=== PATIENT | female | born 1985 | race Caucasian/White ===

== ENCOUNTER 2016-06-12 20:20 | Emergency (ER) | payer BC ==
[2016-06-12 20:54] VITALS: BP 125/67; O2SAT 99
[2016-06-12] MEDS ORDERED: OSELTAMIVIR 75 MG CAP PO ONE (21:37)
--- NOTE | 2016-06-12 21:48 | ED.PDOC ---
History of Present Illness - General Chief Complaint: Fever Stated Complaint: fever, cough, body aches Time Seen by Provider: 06/12/16 21:30 Source: patient Exam Limitations: no limitations - History of Present Illness Initial Comments: Patient presents with one day of ST/fever and non-productive cough. Also has generalized body aches. No sick contacts. She did have a flu shot 3 months ago. + clear nasal exudates. Some mild nausea. No vomiting. No other complaints. Timing/Duration: 24 hours Severity: moderate Improving Factors: nothing Associated Symptoms: fever/chills Allergies/Adverse Reactions: Allergies NO KNOWN ALLERGY Allergy (Unverified 10/27/12 23:03) Home Medications: Ambulatory Orders Oseltamivir Phosphate [Tamiflu] 75 mg PO BID #10 cap 06/12/16 Review of Systems - Review of Systems Constitutional: States: see HPI EENTM: States: see HPI Respiratory: States: see HPI Cardiology: States: no symptoms reported Gastrointestinal/Abdominal: States: see HPI Musculoskeletal: States: no symptoms reported Skin: States: no symptoms reported Neurological: States: no symptoms reported Endocrine: States: no symptoms reported Hematologic/Lymphatic: States: no symptoms reported Past Medical History (General) - Patient Medical History Hx Seizures: No Hx Stroke: No Hx Dementia: No Hx Asthma: No Hx of COPD: No Hx Cardiac Disorders: No Hx Congestive Heart Failure: No Hx Pacemaker: No Hx Hypertension: No Hx Thyroid Disease: No Hx Diabetes: No Hx Gastroesophageal Reflux: No Hx Renal Disease: No Hx of HIV: No Hx Hepatitis C: No Hx MRSA: No - Vaccination History Hx Influenza Vaccination: Yes - Social History Hx Tobacco Use: No - Female History Patient is a Female of Child Bearing Age (10 -59 yrs old): Yes Patient : No Family Medical History - Family History Mother Family History: No Known Physical Exam - Physical Exam General Appearance: Alert Eye Exam: bilateral normal Ears, Nose, Throat: normal ENT inspection Neck: non-tender, full range of motion, supple Respiratory: lungs clear Cardiovascular/Chest: normal peripheral pulses, regular rate, rhythm Gastrointestinal/Abdominal: normal bowel sounds, non tender, soft Back Exam: no CVA tenderness Skin Exam: normal color Progress - Progress Progress: 06/12/16 21:49 Strep negative. Influenza A positive. Patient given Tamiflu 75 mg po x one in the ER and sent home with RX for 5 days worth. Departure - Departure Clinical Impression: Influenza A Disposition: Discharge to Home or Self Care Condition: Good Departure Forms: ED Discharge - Pt. Copy, Patient Portal Self Enrollment Diet: resume usual diet Activity: increase activity as tolerated Prescriptions: Oseltamivir Phosphate [Tamiflu] 75 mg PO BID #10 cap Home Medications: Ambulatory Orders Oseltamivir Phosphate [Tamiflu] 75 mg PO BID #10 cap 06/12/16 Additional Instructions: Take medication as prescribed. Increase oral fluids. Tylenol only for pain or fever control. Return to ER or your primary doctor if symptoms worsen.
[2016-06-12 22:10] VITALS: TEMP 100.9
== END 2016-06-12 22:10 | disposition home or self-care (01) ==
LOC: ER 20:20
DX: J10.1 Influenza due to other identified influenza virus with other respiratory manifestations (principal)

== ENCOUNTER 2018-09-26 15:51 | Emergency (ER) | payer BC, OTHER ==
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
[2018-09-26 17:41] VITALS: BP 121/75; TEMP 98.4; O2SAT 98
== END 2018-09-26 17:51 | disposition home or self-care (01) ==
LOC: ER 15:51
DX: S43.402A Unspecified sprain of left shoulder joint, initial encounter (principal); V43.92XA Unspecified car occupant injured in collision with other type car in traffic accident, initial encounter; Y92.410 Unspecified street and highway as the place of occurrence of the external cause